=== PATIENT | female | born 1990 | race Caucasian/White ===

== ENCOUNTER 2018-04-15 08:48 | Observation (INO) ==
[2018-04-15] MEDS ORDERED: Chlorhexidine Gluconate 2% 1 Pack (2 Cloths) TOPICAL ONE (09:15)
[2018-04-15] MEDS ORDERED: Sodium Chloride 0.9% 2 ML Flush PRN IV.FLUSH (09:15)
[2018-04-15] MEDS ORDERED: Heparin - SQ 10,000 UNITS/ML Vial SQ SCH (09:15)
[2018-04-15] MEDS ORDERED: Levofloxacin 500 mg Premix Inj 500 MG/100 ML PIGGYBACK IV.SIG SCH (09:15)
[2018-04-15] MEDS ORDERED: Sodium Chlor 0.9% Inj 500 ML IV.CONT ONE (09:15)
[2018-04-15] MEDS ORDERED: Metoprolol Tartrate 25 MG Tablet PO ONE (09:15)
[2018-04-15] MEDS ORDERED: Famotidine PF Inj 20 MG/2 ML Vial ONE (10:43)
[2018-04-15] MEDS ORDERED: Sugammadex Inj 200 MG/2 ML Vial IV.PUSH ONE (10:44)
[2018-04-15] MEDS ORDERED: Lidocaine 1%/Epinephrine 1:100,000 Inj 30 ML Vial ONE (10:58)
[2018-04-15] MEDS ORDERED: LORazepam 0.5 MG Tablet PO PRN (14:45)
[2018-04-15] MEDS ORDERED: HYDROmorphone PF Inj 1 MG/ML Ampul IV.PUSH PRN (14:45)
[2018-04-15] MEDS ORDERED: fentaNYL Citrate Inj 100 MCG/2 ML Ampul ONE (14:56)
[2018-04-15] MEDS ORDERED: *morphine SULFATE 10 MG/ML PERIprocedure ONLY ONE (14:58)
[2018-04-15] MEDS ORDERED: *Promethazine Inj 25 MG/ML Vial PERIprocedural use ONLY ONE (15:13)
[2018-04-15] MEDS: KCL 20 mEq/D5W/NaCl 0.45% Inj 1,000 ML IV.CONT SCH ×2 (16:00→23:50)
[2018-04-15] MEDS ORDERED: KCL 20 mEq/NACL 0.45% Inj 1,000 ML ONE (16:05)
[2018-04-15] MEDS ORDERED: Sodium Chloride 0.9% 2 ML Flush BID IV.FLUSH SCH (21:00)
[2018-04-15] MEDS ORDERED: ETHINYL ESTRADIOL PO SCH (21:00)
[2018-04-15] MEDS ORDERED: Topiramate 100 MG Tablet PO SCH (21:00)
[2018-04-15] MEDS ORDERED: [UNRECOGNIZED DRUG - OTHER] PO SCH (21:00)
[2018-04-15] MEDS: Ketorolac Inj 30 MG/ML (IVP) Vial IV.PUSH SCH (21:34)
[2018-04-15] MEDS: Loratadine/Pseudoephedrine 12HR Tablet PO SCH (22:28)
[2018-04-16 00:10] VITALS: O2SAT 97
[2018-04-16] MEDS: Ketorolac Inj 30 MG/ML (IVP) Vial IV.PUSH SCH ×2 (02:09→07:44)
[2018-04-16 05:57] LABS: Baso % (Auto) 0.3 % (0.0-2.0); Eos % (Auto) 0.3 % (0.0-4.0); Hematocrit 36.6 % (35.0-46.0); Hemoglobin 12.1 gm/dL (11.6-15.3); Lymph # (Auto) 2.1 th/mm3 (1.0-4.8); Lymph % (Auto) 18.1 % (9.0-44.0); Mean Corpuscular HGB Conc 33.1 % (32.0-36.0); Mean Corpuscular Hemoglobin 31.1 pg (27.0-34.0); Mean Platelet Volume 8.7 fL (7.0-11.0); Mono # (Auto) 1.1 th/mm3 (0.0-0.9); Mono % (Auto) 9.1 % (0.0-8.0); Neut # (Auto) 8.4 th/mm3 (1.8-7.7); Neut % (Auto) 72.2 % (16.0-70.0); Platelet Count 167 th/mm3 (150-450); Red Blood Count 3.89 mil/mm3 (4.00-5.30); Red Cell Distribution Width 13.8 % (11.6-17.2); White Blood Count 11.7 th/mm3 (4.0-11.0)
[2018-04-16 06:23] LABS: Anion Gap 6 meq/L (5-15); Blood Urea Nitrogen 8 mg/dL (7-18); Calcium 7.9 mg/dL (8.5-10.1); Carbon Dioxide 22.3 meq/L (21.0-32.0); Chloride 112 meq/L (98-107); Glomerular Filtration Rate Greater Than 89 mL/min (>89); Glucose,Random 119 mg/dL (74-106); Potassium 3.9 meq/L (3.5-5.1); Sodium 140 meq/L (136-145)
--- NOTE | 2018-04-16 07:53 | MD ---
cc: Bhumi Jauregui MD,Hosea Cheng,Abram Carson MD DATE OF DISCHARGE: 04/16/2018 PROCEDURE: On 04/15/2018, robotic-assisted laparoscopic right salpingo-oophorectomy, partial omentectomy, appendectomy, intraperitoneal cytology. DIAGNOSIS: Right ovarian mucinous borderline ovarian tumor. HOSPITAL COURSE: She did well in postop. She remained hemodynamically stable, tolerated oral intake. Bolton catheter out pending voiding. Ins and outs 3800 urine output. Labs this morning show H and H of 12.1 and 36.6. Potassium 3.9, BUN and creatinine 8 and 0.75 PHYSICAL EXAMINATION: VITAL SIGNS: She is afebrile, pulse slow rate between 49 and 62, respirations 16-18, blood pressure 92-109/52-69, O2 saturations greater than 93% while asleep, 97% while awake. GENERAL: Alert and oriented x 3. LUNGS: Clear. CARDIOVASCULAR: Regular rate and rhythm. ABDOMEN: Soft. Incisions clean and dry. GYNECOLOGIC: No bleeding. EXTREMITIES: Nontender. ASSESSMENT: Postoperative day number 1, doing well in the early postoperative period. Findings at the time of surgery and steps taken were discussed and reviewed. Activities and restrictions were again reviewed. Questions were asked and answered. She expressed good understanding. PLAN: I anticipate she will meet criteria for discharge to home today. She is to contact our office to schedule a followup in 2 weeks. She is to resume prior medications. She will have a prescription for Percocet for pain if she needs it, and she can contact our office between now and the time of scheduled followup should she have any questions or problems. MD STEFFANIE Laurent/nan , 07:40 AM , 07:45 AM
[2018-04-16] MEDS: Loratadine/Pseudoephedrine 12HR Tablet PO SCH (09:15)
[2018-04-16 12:12] VITALS: BP 92/49; PULSE 68; RESP 18; TEMP 97.8
--- NOTE | 2018-04-20 18:25 | MP ---
cc: Bhumi Jauregui MD,Abram Umaña MD, MD DATE OF OPERATION: 04/15/2018 PREOPERATIVE DIAGNOSES: 1. Right ovarian mucinous borderline ovarian tumor. 2. Status post right ovarian cystectomy. POSTOPERATIVE DIAGNOSES: 1. Right ovarian mucinous borderline ovarian tumor. 2. Status post right ovarian cystectomy. PROCEDURES: Laparoscopic right salpingo-oophorectomy, partial omentectomy, appendectomy, intraperitoneal washings for cytology. SURGEON: Bhumi Jauregui MD PHYSICAL THERAPY MANAGER: Reyes reference assistant. ANESTHESIA: General endotracheal anesthesia. ESTIMATED BLOOD LOSS: 50 mL HISTORY: This is a 28-year-old female who presented on physical exam and imaging to have predominantly cystic right ovarian mass. Given her young age and desire to preserve fertility, Dr. Hosea Morton took her for a laparoscopic right ovarian resection of the mass with cystectomy. The pathology came back as a mucinous borderline ovarian tumor. His intraop findings were that there was no overt abnormality beyond this ovary. She was counseled extensively with her significant other regarding these findings, and options were considered, and she presents now for surgical management. She is seen again in the preoperative holding area where the findings were again reviewed. Her objectives are to remain as conservative as possible with the plan to remove the right tube and ovary as the right ovary is at greatest risk for persistent and/or recurrent disease. We will assess the anatomy. Given that the most likely site of metastatic disease, if present, would be in the omentum, at least a partial omentectomy may be considered as well as peritoneal cytology. Also, given that it is a mucinous tumor, that raises the possibility of an occult appendiceal mucinous tumor with metastasis to the ovary, and so we will plan to consider removing the appendix. FINDINGS: The findings in the peritoneal cavity were such that there was no overt evidence of metastatic disease. The liver diaphragm edges were smooth. The peritoneal surfaces were smooth. The left tube and ovary grossly appeared normal. The uterus appears normal. The right ovary is healing well from recent resection of the mass. The remaining ovary grossly appears normal with some minimal scar tissue. The appendix had some subtle scar tissue around it with possibly a little bit of fibrous thickening to the tip, but otherwise appears normal. The omentum grossly appears normal. DESCRIPTION OF PROCEDURE: She was taken to the operating room and placed in dorsal lithotomy position. After general endotracheal anesthesia was administered, A timeout was undertaken. She was identified by site recognition and hospital ID bracelet and the proposed procedure was reviewed and confirmed. She was carefully positioned in padded Ethan stirrups. Her arms were padded and secured to the sides. She was further secured to the operating table with egg crate padding and tape in a cross chest and over the shoulder fashion. All sites were noted to be properly aligned with no malalignments or pressure points. She was prepped and draped in sterile fashion and placed in lithotomy position. The cervix was grasped. Uterine cavity sounded. Cervix dilated, and a VCare manipulator was inserted and secured in usual fashion. Bolton catheter placed in the bladder. She was returned to low lithotomy position. Change of sterile gloves was undertaken. We confirmed there was an orogastric tube in the stomach on suction, and we completed draping in anticipation of laparoscopy. Incision was made in the midline supraumbilical laparoscopic incision from her recent surgery. With manual elevation of the abdominal wall and direct laparoscopic visualization, a 5 mm cannula was attempted to be introduced, but there was fair bit of scar tissue within the abdominal wall that precluded straightforward entry at this site. So an incision was made in the left upper abdomen, and with manual elevation of the abdominal wall under direct laparoscopic visualization, a 5 mm cannula was introduced into the peritoneal cavity. An atraumatic entry was confirmed and carbon dioxide gas was insufflated. Now under laparoscopic visualization, the midline incision and scar tissue were dissected sharply, and a 12 mm cannula was now able to be introduced. Under direct visualization, 8 mm cannulas were placed in the right upper quadrant and left lateral quadrant using 2 of the recent previous laparoscopic incisions. She was placed in Trendelenburg position. The anatomy was surveyed, inspected, with findings as described above. Peritoneal washings were obtained for cytology. The small bowel was folded back on its mesenteric root, and 3 Ray-Elizabeth sponges were placed around the root of the small bowel mesentery. The robotic system brought into the operative field and attached in the usual fashion. Monopolar scissors, fenestrated bipolar forceps, and ProGrasp manipulators were placed in arms #1, #2, and #3 respectively, and I took my place at the surgeon's console. Retroperitoneal dissection was initiated lateral and parallel to the right gonadal vessels. The right ureter was identified. The right infundibulopelvic ligament was isolated. The intervening peritoneum was opened. The infundibulopelvic ligament was isolated to the level of the pelvic brim where it was cauterized and transected. Dissection was continued distally, freeing minimal adhesions in the peritoneum until the right uteroovarian ligament was isolated which was cauterized and transected, and the removed right tube and ovary were placed in the cul-de-sac for later retrieval. Graspers were used to help bring the infracolic omentum down toward the pelvis. It was inspected and noted to be grossly normal. A generous portion of the omentum was resected with vascular pedicles isolated, cauterized, and transected with bipolar cautery. Nonvascular attachments of tissue were with sharp dissection until a large portion of the infracolic omentum had been removed. This tissue this also was placed in the cul-de-sac for later retrieval. The dissection site was hemostatic. The appendix was isolated, held on gentle traction as the periappendiceal tissue and appendiceal artery was isolated using a [place] bipolar forceps, was cauterized focally and transected, and then sharp dissection was used to dissect down to the base of the appendix. Instruments 1 and 3 exchanged for needle drivers as short segments of 0 silk suture were brought in through the laparoscopic field, where the base of the appendix was now tied securely with 0 silk sutures, and then a second tie a few millimeters distal to that was placed around the base of the appendix. A third tie was placed approximately 1 cm away after the appendix base, after the appeniceal base was compressed with the needle belly dump driver to allow secure tying on the distal segment. The appendix was now removed, cutting between the sutures using sharp dissection and focal point cautery. The appendix was placed in the pericolic gutter on Ray-Elizabeth sponges for later retrieval. The instruments were exchanged. All sites were inspected. The areas were irrigated. All sites were hemostatic. It was felt that all reasonable surgical objectives had been completed. Therefore, the robotic instruments were removed. The robotic system was disengaged from the operative field. I reentered the bedside under sterile condition. A 12 mm EndoCatch bag was introduced, and the right tube and ovary, the omentum, and the appendix were all placed in the EndoCatch bag and brought out through the abdominal wall. Each specimen was removed and for permanent histopathologic analysis. Next, each of the 3 Ray-Elizabeth sponges that were placed in the peritoneal cavity were grasped and removed. Each were inspected and noted to be removed in their entirety. Visual inspection confirmed all sites hemostatic, and there were no remaining foreign objects in the peritoneal cavity sites, and the preliminary counts were correct. The 12 mm fascial defect was closed with interrupted 0 Vicryl sutures. Using a fascia needle passer device, the sutures were tied securely which rendered the fascia completely airtight and hemostatic. Remaining cannulas were withdrawn. Carbon dioxide gas was removed from the peritoneal cavity; 3-0 Vicryl subcutaneous, 3-0 Vicryl subcuticular, and Steri-Strips were used to close these incisions. She was returned to dorsal lithotomy position. Pelvic exam allowed removal of the VCare manipulator. The tenaculum sites and endocervix were rendered hemostatic with silver nitrate. There was good hemostasis. There were no remaining foreign objects in the vagina. Final counts were correct. She was returned to dorsal supine position and was pending reversal of anesthesia when I left the operating room to precede her to the postanesthesia care unit. MD STEFFANIE Laurent/patel , 05:35 PM , 05:50 PM AIDEN
== END 2018-04-16 12:37 | disposition home or self-care (01) ==
LOC: HSDC 08:48 → HSDI 08:48 → H1EA 16:47
PROVIDERS: ADMIT Obstetrics & Gynecology Gynecologic Oncology; ATTEND Obstetrics & Gynecology Gynecologic Oncology

== ENCOUNTER 2018-04-20 11:13 | Observation (INO) ==
[2018-04-20] MEDS ORDERED: Morphine Inj 4 MG/ML Vial IV.PUSH ONE ×2 (11:41→17:19)
--- NOTE | 2018-04-20 11:46 | ED ---
HPI General Chief complaint: Abdominal Pain Stated complaint: Right side complaint Time Seen by Provider: 04/20/18 11:31 History of Present Illness HPI narrative: This is a 28-year-old female with history of PCO S who presents for evaluation of postoperative abdominal pain. The patient underwent robotic assisted laparoscopic right salpingo-oophorectomy, partial omentectomy, appendectomy, intraperitoneal cytology on April 15, [address] Jauregui. She reports that she has had postoperative abdominal pain since then but it has been worsening. She called the nursing line for his office and was referred to the emergency room. Pain is primarily in the right mid abdomen region, aching, constant, partially relieved with use of Percocet and ibuprofen. She reports some nausea and dizziness occasionally as well. She reports that she has been having bowel movements. She has had no vomiting, no fevers, no dysuria or flank pain. She has no other complaints at this time. Related Data Home Medications Medication Instructions Recorded Confirmed biotin 1 tab PO HS 01/11/18 04/20/18 ethynodiol diac-eth estradiol 1 tab PO HS 01/11/18 04/20/18 [Kelnor 1-50] fexofenadine-pseudoephedrine 1 tab PO HS 01/11/18 04/20/18 [Tere-D 24 Hour] metformin 2,000 mg PO HS 01/11/18 04/20/18 topiramate 100 mg PO BID 01/11/18 04/15/18 fluticasone [Allergy Relief 1 spray INTRANASAL DAILY 04/08/18 04/20/18 (fluticasone)] Previous Rx's Medication Instructions Recorded oxycodone-acetaminophen 1 tab PO Q4H PRN #30 tab 04/16/18 Allergies Allergy/AdvReac Type Severity Reaction Status Date / Time Penicillins Allergy Severe Rash Verified 04/15/18 09:22 Review of Systems ROS: all other systems reviewed are negative PMFSH Social History Social History Substance History: No History of Abuse Second Hand Smoke Exposure: No Smoking Status: Never smoker How Often Do You Have a Drink Containing Alcohol: Monthly or less Recent Travel in [facility] within the Last 8 Weeks: No Recent Out of Country Travel within the Last 8 Weeks: No Exam Narrative Exam Narrative: GENERAL: Well-developed well-nourished female who is tearful during abdominal examination. SKIN: Warm and dry. Examination of the abdomen reveals laparoscopic incision sites which are healing well, Steri-Strips are in place. HEAD: Atraumatic. Normocephalic. EYES: Pupils equal and round. No scleral icterus. No injection or drainage. ENT: No nasal bleeding or discharge. Mucous membranes pink and moist. NECK: Trachea midline. No JVD. CARDIOVASCULAR: Regular rate and rhythm. No murmur appreciated. RESPIRATORY: No accessory muscle use. Clear to auscultation. Breath sounds equal bilaterally. GASTROINTESTINAL: Abdomen soft, there is tenderness to palpation in the right mid abdominal region, there is no guarding. The abdomen is not distended. MUSCULOSKELETAL: No obvious deformities. No clubbing. No cyanosis. No edema. NEUROLOGICAL: Awake and alert. No obvious cranial nerve deficits. Motor grossly within normal limits. Normal speech. Course Initial Documented Vital Signs Temperature 98.3 F 04/20/18 11:18 Pulse Rate 96 H 04/20/18 11:18 Respiratory Rate 16 04/20/18 11:18 Blood Pressure 129/65 04/20/18 11:18 Pulse Oximetry 99 04/20/18 11:18 Last Documented Vital Signs Temperature 98.3 F 04/20/18 11:18 Pulse Rate 76 04/20/18 16:00 Respiratory Rate 16 04/20/18 17:54 Blood Pressure 132/83 04/20/18 16:00 Pulse Oximetry 98 04/20/18 16:00 Medical Decision Making NILE Attestation NILE supervised visit: Yes Attestation: I, Dr. Valdez, have reviewed the advance practice practitioner's documentation and am in agreement, met with the patient face to face, made the diagnosis, and the medical decision making was done by me. *My assessment and Findings: Patient seen and examined by me in addition to Rustam Villatoro. 28-year-old female is postop day #4 from right salpingo- oophorectomy and appendectomy. Patient is fairly tender on the right upper and right lower quadrants of the abdomen and pushes my hand away multiple times. She did allow up with percussion and rebound testing of left side, there may be a small amount of rebound but there is no percussive tenderness. The patient's abdomen was soft on the left side. Again she did not allow significant palpation on the right side. CAT scan of the abdomen was reviewed and unfortunately there still is intra-abdominal air of unknown determined origin. Likely this is from the insufflation of the laparoscopic procedure however the radiologist cannot give any assurances that there is an a perforated viscus and the patient did have surgery on her appendix. I did discuss the patient with Dr. Jauregui, he is discussed with Dr. Moffett who is on- call for general surgery is Dr. Jauregui is not control clerk today. The 2 surgeons requested patient have a CT scan with p.o. contrast and one has been ordered. They both recommended admission to hospitalist service overnight for further monitoring. MDM Narrative Medical decision making narrative: An IV was established, lab work was obtained , urinalysis was obtained, CT abdomen pelvis ordered. The patient was given morphine and Zofran. Lab work is been reviewed, notable for WBC count of 13.8, urinalysis reveals large leukocytes, small blood, cultures pending. CT abdomen pelvis reveals evidence of a moderate amount of air, differential diagnosis includes residual free intraperitoneal air related to recent intraoperative procedure versus perforated viscus. There are several loops of minimally dilated small bowel suggesting postoperative ileus. There is subcutaneous air noted throughout the abdominal and pelvic wall consistent with recent intraoperative surgery. On reexamination she feels somewhat improved, her abdomen is soft however she is significantly tender still in the right side of her abdomen particularly, cries with palpation. Therefore will discuss with her surgeon. She was given Rocephin and Flagyl. 1600: I discussed with Dr. Perez who is on-call for Dr. Jauregui who recommends consulting the on-call general surgeon as she is not a surgeon and will not be able to help with this particular issue. Dr. Valdez was able to discuss the case with Dr. Jauregui who is requesting a CT of the abdomen and pelvis with oral contrast and without IV contrast and admission overnight to the medicine team, Dr. Rivers will consult. The patient was given additional analgesics. She will be admitted. Medical Screen Exam Complete: Yes Emergency Medical Condition: Yes Differential Diagnosis Differential Diagnosis: Postoperative abdominal pain, seroma, abscess, colitis, obstruction, hematoma Lab Data Result diagrams: 04/20/18 12:00 04/20/18 12:00 Lab Results 04/20/18 04/20/18 04/20/18 Range/Units 12:00 12:00 12:00 WBC 13.8 H (4.0-11.0) th/mm3 RBC 4.52 (4.00-5.30) mil/mm3 Hgb 14.4 (11.6-15.3) gm/dL Hct 41.7 (35.0-46.0) % MCV 92.2 (80.0-100.0) fL MCH 31.8 (27.0-34.0) pg MCHC 34.5 (32.0-36.0) % RDW 13.8 (11.6-17.2) % Plt Count 199 (150-450) th/mm3 MPV 9.0 (7.0-11.0) fL Prelim Diff (Auto) Slide review pending Neut % (Auto) 68.0 (16.0-70.0) % Lymph % (Auto) 20.3 (9.0-44.0) % Ness % (Auto) 5.1 (0.0-8.0) % Eos % (Auto) 6.2 H (0.0-4.0) % Baso % (Auto) 0.4 (0.0-2.0) % Neut # (Auto) 9.4 H (1.8-7.7) th/mm3 Lymph # (Auto) 2.8 (1.0-4.8) th/mm3 Ness # (Auto) 0.7 (0.0-0.9) th/mm3 Eos # (Auto) 0.9 H (0.0-0.4) th/mm3 Baso # (Auto) 0.0 (0.0-0.2) th/mm3 WBC Differential . Diff Scan Auto diff confirmed Differential Comment . Platelet Estimate Normal (Normal) Platelet Morphology Clumped H (Normal) Sodium 138 (136-145) meq/L Potassium 4.6 (3.5-5.1) meq/L Chloride 106 (98-107) meq/L Carbon Dioxide 25.2 (21.0-32.0) meq/L Anion Gap 7 (5-15) meq/L BUN 14 (7-18) mg/dL Creatinine 0.95 (0.50-1.00) mg/dL Estimated GFR 70 L (>89) mL/min Random Glucose 88 (74-106) mg/dL Calcium 8.9 (8.5-10.1) mg/dL Magnesium 2.0 (1.5-2.5) mg/dL Total Bilirubin 0.6 (0.2-1.0) mg/dL AST 48 H (15-37) U/L ALT 35 (10-53) U/L Alkaline Phosphatase 73 (45-117) U/L Total Protein 7.6 (6.4-8.2) g/dL Albumin 3.4 (3.4-5.0) g/dL Lipase 69 L (73-393) U/L Urine Color Yellow (Yellw/Straw) Urine Clarity Hazy H (Clear) Urine pH 6.0 (5.0-8.5) Ur Specific [place] 1.010 (1.002-1.035) Urine Protein Negative (Neg-Trace) mg/dL Urine Glucose (UA) Negative (Negative) mg/dL Urine Ketones Negative (Negative) mg/dL Urine Occult Blood Small H (Negative) Urine Nitrate Negative (Negative) Urine Bilirubin Negative (Negative) Urine Urobilinogen Less than 2 (Less than 2) mg/dL Ur Leukocyte Esterase Large H (Negative) Urine RBC 2 (0-3) /hpf Urine WBC 21 H (0-5) /hpf Ur Squamous Epith Cells 9 (0-5) /hpf Urine Bacteria Rare H (None) /hpf Urine Mucus Few H (Occasional) /lpf Micro UA Comment Culture indicated Ur Microscopic Review Not Reportable Urine Culture Comments Culture indicated Imaging Data Radiologist's impression: Chest X-Ray 04/20/18 00:00 CONCLUSION: 1. No acute cardiopulmonary disease. Abdomen/Pelvis CT 04/20/18 11:41 CONCLUSION: 1. Evidence of a moderate amount of free intraperitoneal air. Differential diagnosis includes residual free intraperitoneal air related to recent intraoperative procedure versus perforated viscus. Clinical correlation is recommended to rule out acute abdomen. There are several loops of minimally dilated small bowel suggesting postoperative ileus. 2. Subcutaneous air is noted throughout the abdominal and pelvic wall bilaterally consistent with recent intraoperative surgery. 3. Distended urinary bladder. 4. Tiny stable low-density lesion within the right lobe of liver measuring 7 mm which remains too small for accurate density measurement. Discharge Plan Discharge Disposition Patient Disposition: ED Admit(ED Internal Use Only) Discharge Condition Condition: Stable Discharge Order Discharge Orders: ED Use Only Admit Order (Routine); Ordered 04/20/18 Ordered By: Rustam Irving Discharge Details Diagnosis: Acute postoperative abdominal pain, UTI (urinary tract infection) Physicians Team ED Provider: Alexis Valdez ED Midlevel Provider: Rustam Villatoro Primary Care Provider: Abram Cheng Rxs /Orders / Referrals /Forms Prescriptions: No Action fluticasone [Allergy Relief (fluticasone)] 50 mcg/actuation [place],Suspension 1 spray INTRANASAL DAILY RF: 0 oxycodone-acetaminophen 5-325 mg Tablet 1 tab PO Q4H PRN (Reason: Pain ) Qty: 30 RF: 0 ethynodiol diac-eth estradiol [Kelnor 1-50] 1-50 mg-mcg Tablet 1 tab PO HS RF: 0 topiramate 100 mg Tablet 100 mg PO BID RF: 0 fexofenadine-pseudoephedrine [Tere-D 24 Hour] 180-240 mg Tablet Extended Release 24 Hr 1 tab PO HS RF: 0 metformin 1,000 mg Tablet,Er Marissa.Retention 24 Hr 2,000 mg PO HS RF: 0 biotin 5 mg Tablet 1 tab PO HS RF: 0 Status ED Status: With Doctor
[2018-04-20 12:23] LABS: Baso % (Auto) 0.4 % (0.0-2.0); Eos # (Auto) 0.9 th/mm3 (0.0-0.4); Eos % (Auto) 6.2 % (0.0-4.0); Hematocrit 41.7 % (35.0-46.0); Hemoglobin 14.4 gm/dL (11.6-15.3); Lymph # (Auto) 2.8 th/mm3 (1.0-4.8); Lymph % (Auto) 20.3 % (9.0-44.0); Mean Corpuscular HGB Conc 34.5 % (32.0-36.0); Mean Corpuscular Hemoglobin 31.8 pg (27.0-34.0); Mean Corpuscular Volume 92.2 fL (80.0-100.0); Mono # (Auto) 0.7 th/mm3 (0.0-0.9); Mono % (Auto) 5.1 % (0.0-8.0); Neut # (Auto) 9.4 th/mm3 (1.8-7.7); Platelet Count 199 th/mm3 (150-450); Red Blood Count 4.52 mil/mm3 (4.00-5.30); Red Cell Distribution Width 13.8 % (11.6-17.2); White Blood Count 13.8 th/mm3 (4.0-11.0)
[2018-04-20 12:32] LABS: Bacteria,Urine Rare /hpf; Bilirubin,Urine Negative (Negative); Clarity,Urine Hazy (Clear); Color,Urine Yellow (Yellw/Straw); Glucose,Urine (UA) Negative (Negative); Leukocyte Esterase,Urine Large (Negative); Mucus,Urine Few /lpf (Occasional); Nitrite,Urine Negative (Negative); Squamous Epithelial Cell,Urine 9 /hpf (0-5)
[2018-04-20 12:40] LABS: Alanine Aminotransferase 35 U/L (10-53)
[2018-04-20 12:42] LABS: Alkaline Phosphatase 73 U/L (45-117); Total Protein 7.6 g/dL (6.4-8.2)
[2018-04-20 12:45] LABS: Albumin 3.4 g/dL (3.4-5.0); Anion Gap 7 meq/L (5-15); Blood Urea Nitrogen 14 mg/dL (7-18); Calcium 8.9 mg/dL (8.5-10.1); Carbon Dioxide 25.2 meq/L (21.0-32.0); Chloride 106 meq/L (98-107); Glomerular Filtration Rate 70 mL/min (>89); Glucose,Random 88 mg/dL (74-106); Lipase 69 U/L (73-393); Sodium 138 meq/L (136-145)
[2018-04-20 12:46] LABS: Aspartate Aminotransferase 48 U/L (15-37); Potassium 4.6 meq/L (3.5-5.1)
[2018-04-20 12:50] LABS: Platelet Estimate Normal (Normal); Platelet Morphology Clumped (Normal)
--- NOTE | 2018-04-20 15:18 | CT ---
EXAM DATE: 04/20/2018 3:10 PM EST AGE/SEX: 28 years / Female INDICATIONS: Right lower quadrant pain, 5 days post op ovary,fallopian tube, omentum, and appendix r emoval CLINICAL DATA: This is the patient's initial encounter. Patient reports that signs and symptoms have been present for 4 - 6 days and indicates a pain score of 8/10. MEDICAL/SURGICAL HISTORY: None. Appendectomy. Right oopheractomy, ORAL CONTRAST: No oral contrast ingested. RADIATION DOSE: 11.89 CTDI (mGy) COMPARISON: POI, CT ABDOMEN AND PELVIS W AND W/O CONTRAST, 12/26/2017. POI, US TRANSVAGINAL, 11/30. . TECHNIQUE: Multiple contiguous axial images were obtained through the abdomen and pelvis following b olus infusion of 97 ml Omnipaque 350 (iohexol) nonionic water-soluble contrast as a single exam dos e. No oral contrast ingested. Using automated exposure control and adjustment of the mA and/or kV ac cording to patient size, radiation dose was kept as low as reasonably achievable to obtain optimal di agnostic quality images. DICOM format image data is available electronically for review and comparis on. FINDINGS: Lower Lungs: The visualized lower lungs are clear. Liver: There is a tiny stable low-density lesion within the right lobe of liver measuring 7 mm which remains too small for accurate density measurement. There is no dilation of the biliary tree. Spleen: Homogeneous density without enlargement. Pancreas: Unremarkable without mass or calcification. Kidneys: Normal in size and shape. No evidence of mass or hydronephrosis. Adrenal Glands: Unremarkable. Aorta: The aorta and proximal iliac vessels are grossly unremarkable without aneurysmal dilation. Bowel/Mesentery: There is evidence of a moderate amount of free intraperitoneal air. Differential di agnosis includes residual free intraperitoneal air related to recent intraoperative procedure versus perforated viscus. Clinical correlation is recommended to rule out acute abdomen. There are several l oops of minimally dilated small bowel suggesting postoperative ileus. Abdominal Wall: Subcutaneous air is noted throughout the abdominal and pelvic wall bilaterally consi stent with recent intraoperative surgery. Retroperitoneum: No evidence of adenopathy in the retrocrural, para-aortic, or deep pelvic regions. Bladder: The urinary bladder is distended. Reproductive Organs: No abnormal masses or calcifications seen. Inguinal: The inguinal region is unremarkable without evidence of adenopathy. Bony Structures: Unremarkable. CONCLUSION: 1. Evidence of a moderate amount of free intraperitoneal air. Differential diagnosis includes residu al free intraperitoneal air related to recent intraoperative procedure versus perforated viscus. Clin ical correlation is recommended to rule out acute abdomen. There are several loops of minimally dilat ed small bowel suggesting postoperative ileus. 2. Subcutaneous air is noted throughout the abdominal and pelvic wall bilaterally consistent with re cent intraoperative surgery. 3. Distended urinary bladder. 4. Tiny stable low-density lesion within the right lobe of liver measuring 7 mm which remains too sm all for accurate density measurement. Electronically signed by: Alexis Salmon MD Board Certified Radiologist 04/20/2018 3:17 PM EST
[2018-04-20] MEDS ORDERED: Diatrizoate Meglum/Diatrizoate Sod Liq 9 ML UDC ONE (17:18)
--- NOTE | 2018-04-20 17:37 | P.HPIM ---
History of Present Illness Primary Care Physician: Abram Cheng MD Chief Complaint: abd pain History of Present Illness: This a 28-year-old female patient with past medical history which includes allergic rhinitis, migraines, PCOS. Patient is status post robotic-assisted laparoscopic right salpingo-oophorectomy, partial omentectomy, appendectomy, intraperitoneal cytology on 04/15/[address] Jauregui. Patient presents to the ER for evaluation of postoperative abdominal pain. She reports that she has had postoperative abdominal pain since the surgery but it has been worsening. She called the nursing line for his office and was referred to the emergency room. Pain is primarily in the right mid abdomen region, aching, constant, partially relieved with use of Percocet and ibuprofen. She reports some nausea and dizziness occasionally as well. She reports that she has been having bowel movements. She has had no vomiting, no fevers, no dysuria or flank pain. She has no other complaints at this time. PMH: allergic rhinitis, migraines, PCOS PSxH: robotic-assisted laparoscopic right salpingo-oophorectomy, partial omentectomy, appendectomy, intraperitoneal cytology on 04/15/[address] Jauregui 12/2017 laparoscopy with right ovarian cystectomy Social history: occasional ETOH use, denies tobacco use, denies illicit drug use FMH: Father has HTN Mother has OA Medications and Allergies Allergies Allergy/AdvReac Type Severity Reaction Status Date / Time Penicillins Allergy Severe Rash Verified 04/15/18 09:22 Home Medications Medication Instructions Recorded Confirmed Type biotin 1 tab PO HS 01/11/18 04/20/18 History ethynodiol diac-eth estradiol 1 tab PO HS 01/11/18 04/20/18 History [Kelnor 1-50] fexofenadine-pseudoephedrine 1 tab PO HS 01/11/18 04/20/18 History [Tere-D 24 Hour] metformin 2,000 mg PO HS 01/11/18 04/20/18 History topiramate 100 mg PO BID 01/11/18 04/15/18 History fluticasone [Allergy Relief 1 spray INTRANASAL DAILY 04/08/18 04/20/18 History (fluticasone)] Active Medications: Active Medications Sodium Chloride (Ns Flush) 2 ml IV.FLUSH PRN PRN PRN Reason: FLUSH AFTER USING IV ACCESS Last Admin: 04/20/18 17:26 Dose: 2 ml Physical Exam Vital signs: Last Vital Signs Temp 98.3 F 04/20/18 11:18 Pulse 76 04/20/18 16:00 Resp 20 04/20/18 16:00 BP 132/83 04/20/18 16:00 Pulse Ox 98 04/20/18 16:00 Narrative: GENERAL: This is a well-nourished, well-developed patient, in no apparent distress. CARDIOVASCULAR: Regular rate and rhythm without murmurs, gallops, or rubs. RESPIRATORY: Clear to auscultation. Breath sounds equal bilaterally. No wheezes , rales, or rhonchi. GASTROINTESTINAL: Abdomen soft, generalized tender worse on the right, nondistended. Normal active bowel sounds MUSCULOSKELETAL: Extremities without clubbing, cyanosis, or edema. NEURO: Alert & Oriented x4 to person, place, time, situation. Moves all ext x4 Results Labs CBC & Chem 7: 04/20/18 12:00 04/21/18 07:07 Caprini VTE Risk Assessment Caprini VTE Risk Assessment: Moderate/High Risk (score >= 2) Caprini Risk Assessment Model: Point Value = 1 Point Value = 2 Point Value = 3 Point Value = 5 Age 41-60 Minor surgery BMI > 25 kg/m2 Swollen legs Varicose veins or History of unexplained or recurrent spontaneous Oral contraceptives or hormone replacement Sepsis (< 1 month) Serious lung disease, including pneumonia (< 1 month) Abnormal pulmonary function Acute myocardial infarction Congestive heart failure (< 1 month) History of inflammatory bowel disease Medical patient at bed rest Age 61-74 Arthroscopic surgery Major open surgery (> 45 min) Laparoscopic surgery (> 45 min) Malignancy Confined to bed (> 72 hours) Immobilizing plaster cast Central venous access Age >= 75 History of VTE Family history of VTE Factor V Leiden Prothrombin [id number] Lupus anticoagulant Anticardiolipin antibodies Elevated serum homocysteine Heparin-induced thrombocytopenia Other congenital or acquired thrombophilia Stroke (< 1 month) Elective arthroplasty Hip, pelvis, or leg fracture Acute spinal cord injury (< 1 month) Prophylaxis Regimen: Total Risk Factor Score Risk Level Prophylaxis Regimen 0-1 Low Early ambulation 2 Moderate Order ONE of the following: *Sequential Compression Device (SCD) *Heparin 5000 units SQ BID 3-4 Higher Order ONE of the following medications: *Heparin 5000 units SQ TID *Enoxaparin/Lovenox 40 mg SQ daily (WT < 150 kg, CrCl > 30 mL/min) *Enoxaparin/Lovenox 30 mg SQ daily (WT < 150 kg, CrCl > 10-29 mL/min) *Enoxaparin/Lovenox 30 mg SQ BID (WT < 150 kg, CrCl > 30 mL/min) AND/OR *Sequential Compression Device (SCD) 5 or more Highest Order ONE of the following medications: *Heparin 5000 units SQ TID (Preferred with Epidurals) *Enoxaparin/Lovenox 40 mg SQ daily (WT < 150 kg, CrCl > 30 mL/min) *Enoxaparin/Lovenox 30 mg SQ daily (WT < 150 kg, CrCl > 10-29 mL/min) *Enoxaparin/Lovenox 30 mg SQ BID (WT < 150 kg, CrCl > 30 mL/min) AND *Sequential Compression Device (SCD) Assessment and Plan Plan This a 28-year-old female patient with past medical history which includes allergic rhinitis, migraines, PCOS. Patient is status post robotic-assisted laparoscopic right salpingo-oophorectomy, partial omentectomy, appendectomy, intraperitoneal cytology on 04/15/[address] Jauregui. Patient presents to the ER for evaluation of postoperative abdominal pain. She reports that she has had postoperative abdominal pain since the surgery but it has been worsening. She called the nursing line for his office and was referred to the emergency room. Pain is primarily in the right mid abdomen region, aching, constant, partially relieved with use of Percocet and ibuprofen. She reports some nausea and dizziness occasionally as well. She reports that she has been having bowel movements. She has had no vomiting, no fevers, no dysuria or flank pain. She has no other complaints at this time. Right ovarian mucinous borderline ovarian tumor Patient is status post robotic-assisted laparoscopic right salpingo-oophorectomy , partial omentectomy, appendectomy, intraperitoneal cytology on 04/15/[address] Jauregui. Patient presents to the ER for evaluation of postoperative abdominal pain. Abdomen/Pelvis CT 04/20/18 1. Evidence of a moderate amount of free intraperitoneal air. Differential diagnosis includes residual free intraperitoneal air related to recent intraoperative procedure versus perforated viscus. Clinical correlation is recommended to rule out acute abdomen. There are several loops of minimally dilated small bowel suggesting postoperative ileus. 2. Subcutaneous air is noted throughout the abdominal and pelvic wall bilaterally consistent with recent intraoperative surgery. 3. Distended urinary bladder. 4. Tiny stable low-density lesion within the right lobe of liver measuring 7 mm which remains too small for accurate density measurement. Dr. Guerrier updated Dr. Jauregui Consult general surgery Possible UTI WBC 13.8 Urinalysis reviewed small amount of occult blood large amount of leukocyte esterase rare bacteria and rare mucus present Urine culture is pending emergency department gave Rocephin 1 gram IV Continue Rocephin 1 gram IV daily Migraines Continue patient's home Topiramate 100mg 1 tablet BID PCOS Continue patient's home metformin 1000mg PO BID DVT prophylaxis with SCDs Attending Attestation The exam, history, and the medical decision-making described in the above note were completed with the assistance of the mid-level provider. I reviewed and agree with the findings presented. I attest that I had a [id number] encounter with the patient on the same day, and personally performed and documented my assessment and findings in the medical record. Patient examined. Assessment and plan formulated with Delia Gillette PA-C. I agree with the above. Case d/w Dr. Jauregui by phone. Case d/w Dr. Rivers and pt examined together with Dr. Rivers. clinically perforation seems unlikely. Will obtain CT A/P with contrast for further evaluation. narcotics prn pain
[2018-04-20] MEDS ORDERED: Acetaminophen 325 MG Tablet PO PRN (17:41)
--- NOTE | 2018-04-20 18:05 | XR ---
EXAM DATE: 04/20/2018 6:02 PM EST AGE/SEX: 28 years / Female INDICATIONS: Shortness of breath off and on. Right lower quadrant pain, 5 days post op ovary,fallopi an tube, omentum, and appendix removal. CLINICAL DATA: This is the patient's initial encounter. Patient reports that signs and symptoms have been present for 4 - 6 days and indicates a pain score of 7/10. MEDICAL/SURGICAL HISTORY: None. Appendectomy. Right oophorectomy COMPARISON: No prior exams available for comparison. FINDINGS: A single AP view of the chest demonstrates the lungs to be symmetrically aerated without evidence of mass, infiltrate or effusion. The cardiomediastinal contours are unremarkable. Osseous structures a re intact. CONCLUSION: 1. No acute cardiopulmonary disease. Electronically signed by: Thom Barnett MD Board Certified Radiologist 04/20/2018 6:04 PM ADRIANA Parra
--- NOTE | 2018-04-20 19:24 | CT ---
EXAM DATE: 04/20/2018 7:15 PM EST AGE/SEX: 28 years / Female INDICATIONS: Abnormal prior CT. CLINICAL DATA: This is the patient's initial encounter. Patient reports that signs and symptoms have been present for 1 day and indicates a pain score of 7/10. MEDICAL/SURGICAL HISTORY: None. . ovarian cystectomy RADIATION DOSE: 7.6 CTDI (mGy) COMPARISON: C, CT ABDOMEN & PELVIS W CONTRAST, 04/20/2018. POI, CT ABDOMEN AND PELVIS W AND W /O CONTRAST, 12/26/2017. . TECHNIQUE: Multiple contiguous axial images were obtained through the abdomen. Images were obtained using multiple row detector helical technique. Using automated exposure control and adjustment of the mA and/or kV according to patient size, radiation dose was kept as low as reasonably achievable to o btain optimal diagnostic quality images. DICOM format image data is available electronically for rev iew and comparison. FINDINGS: Again, there is evidence of free intraperitoneal air which is stable in volume compared to the earlie r scan. Differential diagnosis remains the same including air related to recent intraoperative proced ure versus perforated viscus if clinical scenario suggests this diagnosis. There is no evidence of ex travasation of oral contrast. Subcutaneous air is again noted within the abdominal and pelvic wall an d is stable. There is no significant change in the appearance of the intra-abdominal viscera compared to previous examination. No bowel obstruction is noted. The urinary bladder is distended with contra st but demonstrates no wall thickening. CONCLUSION: 1. Persistent free intraperitoneal air which is stable in volume compared to the earlier scan. Diffe rential diagnosis remains the same including air related to recent intraoperative procedure versus pe rforated viscus if clinical scenario suggests this diagnosis. 2. There is no evidence of extravasation of oral contrast. 3. Stable subcutaneous air within the abdominal and pelvic wall. Electronically signed by: Alexis Salmon MD Board Certified Radiologist 04/20/2018 7:22 PM EST
--- NOTE | 2018-04-20 19:44 | MB ---
cc: Krupa Rivers MD DATE: 04/20/2018 CONSULTING PHYSICIAN: Krupa Rivers MD, Surgery. REASON FOR CONSULTATION: Right lower quadrant pain, status post salpingo-oophorectomy, appendectomy, and omentectomy. HISTORY OF PRESENT ILLNESS: This 28-year-old female, underwent on 04/15/2018 a laparoscopic oophorectomy, appendectomy, and a partial omentectomy by Dr. Jauregui. The patient did well postoperatively, continued to have some abdominal pain, and now comes to the emergency room with worsening pain in the right lower quadrant. The patient has aching, however, relieved partially with pain medication. She has had 4 bowel movements and taking p.o., does not have nausea, does not have both vomiting. No fever. No burning urination. PAST SURGICAL HISTORY: Other than this operation, in December of this year, the patient had laparoscopy with right ovarian cyst removal. SOCIAL HISTORY: The patient drinks occasionally, does not smoke. 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 PHYSICAL EXAMINATION: GENERAL: A pleasant 28-year-old lady. HEENT: Normocephalic. No trauma to the head. Pupils equal, reactive. Extraocular muscles intact. NECK: Bilateral carotid pulses. No masses. CHEST: Bilateral breath sounds. HEART: Regular rhythm. The patient is normopneic. No tachypnea or tachycardia. HEMODYNAMIC: She is completely stable. ABDOMEN: Soft. Hypoactive bowel sounds. Incisions from ports are nice and clean and dry. The patient is indeed tender in the right bassem-abdomen, mainly in the right lower quadrant where there is some voluntary guarding and rebound, but no masses are noted. The patient has referred tenderness from left to right and some tenderness in the right flank. PELVIS: Stable. EXTREMITIES: Within normal limits. BACK: Normal. IMPRESSION: I reviewed laboratory and diagnostic procedures. This lady had 4 days ago fairly extensive procedure on top of previous laparoscopy which required some finesse. The amount of air in the abdomen is consistent with postoperative changes and some retained air. It does not look like this is a leaking organ. Differential diagnoses clearly includes slipped tie off the appendiceal stump or possible incidental small intestinal perforation. The first possibility is distinct, happens occasionally, and it is self-limiting. The appendiceal stump will seal off on its own. There will be no issue there. Small bowel perforation on the other hand, if undiagnosed, would have to be addressed quickly. At this point, the patient does not appear toxic, does not appear critically ill. Tenderness, guarding, and rebound are mainly voluntary, but abdomen is generally benign. If she had 4 days of leakage from the small bowel, she would have a large amount of fluid in the pelvis, would be much sicker at this point which the patient is not. White count is slightly elevated with minimal left shift. All this indicates postoperative changes and perhaps simply pain from the surgery. The patient also has some retained stool in the right colon, which does not help the picture. At this point, the best way to go about it is to have the patient undergo oral contrast CT, and we will see what that looks like. Should the patient have some indication of perforation, we will attend that immediately, but I do not expect this to happen. I have discussed with Dr. Jauregui, and I am covering for him for any surgical emergencies that might arise. Thank you very much for referral. I have discussed this also with Dr. Guerrier with admitting the patient. MD ADRIEN Alba/patel/ev , 06:48 PM , 06:59 PM MTDD
[2018-04-20] MEDS: Senna/Docusate Sodium 8.6/50 MG Tablet PO SCH (21:57)
[2018-04-20] MEDS: Sod Chloride 0.9% Inj 1,000 ML IV.CONT SCH (21:58)
[2018-04-20] MEDS: HYDROmorphone PF Inj 0.5 MG/0.5 ML Syringe IV.PUSH PRN (21:59)
--- NOTE | 2018-04-20 22:36 | MB ---
cc: Bhumi Jauregui MD, Edward B DO Jazarevic, Slobodan MD DATE: 04/20/2018 REQUESTING CONSULT: Dr. Kermit Valdez REASON FOR CONSULTATION: Recent postoperative patient. REASON FOR EVALUATION AT ADMISSION: Abdominal pain. Intraperitoneal and subcutaneous free air. Elevated white count. HISTORY: This is a 28-year-old female who is postoperative day #5 status post robotic-assisted laparoscopic right salpingo-oophorectomy, partial omentectomy and appendectomy. This surgery was done because of recent right ovarian cystectomy showed a mucinous borderline ovarian tumor. After she recovered from her initial surgery, she was counseled and elected to move forward with the aforementioned surgery. She did well in the early postoperative period and was discharged to home on postoperative day #1. She reports that ever since the surgery, she has had right-sided pain that has persisted. She reports the pain being relatively constant and can limit her movement and certain movements that involve her abdominal wall increase the discomfort. She was concerned as her first laparoscopic surgery was not associated with this type discomfort and whereas the pain has not necessarily gotten significantly worse, she was concerned because it had not improved. Apparently, she had contacted our office requesting additional pain medication for coverage during the forthcoming holiday and in discussion with our office nurse recommendations were made to be evaluated in the emergency room because of her symptomatology. She reports that she went the first 2 days after surgery with no flatus and then started moving gas through with very small amount of liquid stool associated with passage of flatus, but no regular bowel movements since surgery. She has had no nausea and no vomiting. She has tolerated oral solids and liquids without adverse effect. She is voiding without difficulty. Upon initial evaluation in the emergency room, objective findings of note are that of an elevated white count of 13.8, H and H of 14.4 and 41.7, platelets 199. Electrolytes show preserved renal function, BUN and creatinine 14 and 0.95, potassium 4.6. CT scan shows moderate amount of free air in the peritoneal cavity as well as the subcutaneous space. There is no obvious intraperitoneal fluid or abscess. There are a few dilated loops of small bowel without overt obstruction, possible partial ileus. Because of these findings, Dr. Rivers was consulted and I had the opportunity to discuss this patient with Dr. Valdez and with Dr. Rivers. We agreed that a CT scan of the abdomen with oral contrast would be helpful to evaluate whether or not there is any obvious extravasation of contrast from the digestive system to evaluate for the possibility of intestinal injury or appendiceal leak from the appendectomy site. I also had the opportunity to discuss the care with Dr. Americo Guerrier. I am grateful for all of them involved, their willingness to assist and cover as I was not telecommunications engineer, but certainly am concerned and wanted to see how she was doing as she is a recent postoperative case as a postoperative patient under my care and I am grateful for Dr. Rivers's attention to her and willingness to cover her for any surgical matters in my absence. The followup imaging showed stability of the area as noted above. It did not show any obvious extravasation of dye beyond the intestinal tract. The pathology from her recent surgery shows no residual borderline tumor in the right ovary. The appendix appears normal other than some fibrous obliteration of the lumen and the omentum has some reactive cells, but no overt evidence to suggest borderline tumor and all of the aforementioned results are shared with Mary Cosme and her significant other. PAST MEDICAL HISTORY: Recent diagnosis of borderline ovarian tumor as noted above. She has a past medical history of migraine headaches, otherwise is in good health. ALLERGIES: NECTANINE AND PENICILLIN. SOCIAL HISTORY: She is and has a very supportive . Denies alcohol or tobacco use. FAMILY HISTORY: Unremarkable. REVIEW OF SYSTEMS: As per history of present illness. MEDICATIONS: Include: 1. Percocet. 2. Topiragen. 3. Kelnor. 4. Tere. PHYSICAL EXAMINATION: GENERAL: She is seen in the emergency room with her . She is afebrile. She is resting comfortably, no acute distress, asks and answers questions appropriately. Alert and oriented x3. VITAL SIGNS: Afebrile, pulse 68-96, respirations 16-20, blood pressure 92-132 over 49-99, O2 saturations greater than or equal to 99% on room air. ABDOMEN: Soft. The laparoscopic incisions appear to be healing well. There is no obvious ecchymosis, seroma, or hematoma. No separation of the skin. No obvious hernia. She had tenderness on deep palpation most motion noted in the right upper quadrant, but without palpable mass or abdominal wall deformity. She tolerates the exam without rebound, but she states that it is the same spot that has been uncomfortable since surgery and remains uncomfortable. CORRESPONDENCE REVIEW CLERK: Deferred given recent exams. She has had no bleeding. Time was spent in discussing with her and reviewing the findings in her case to date. I summarized all of the aforementioned findings, concerns and test results thus far. Additionally, there is some red cells and leukocyte esterase in the urine specimen and culture is forthcoming, so the possibility of a urinary tract infection is included in our concerns. I explained that there is no overt evidence of intestinal obstruction. There is no intraperitoneal bleeding or fluid. There is no obvious extravasation of dye to suggest discontinuity within the digestive system. It is thought that the intraperitoneal and subcutaneous air is still consistent with findings for postoperative day #5. Nevertheless, because she is feeling poorly and with these findings, we all agreed it is reasonable to have her admitted for observation and supportive care to ensure that she improves in how she is feeling and does not have any significant or worrisome new findings. Discussion ensued. Questions were answered. She expressed good understanding. Again, I explained that the results thus far and that the aforementioned physicians will be assisting in her care in my absence from call. However, any tentative holiday travel plans have been put on hold at least in the short-term and I am able to be reached on my cell phone at any time should there be any new concerns. More questions were asked and answered and hope she gets to feeling better soon. ASSESSMENT: 1. Postoperative day #5 2. Abdominal pain, elevated white count, intraperitoneal and subcutaneous air. 3. Objective findings as summarized above. No overt evidence of obstruction, intraperitoneal bleed, intraperitoneal fluid or extravasation of contrast to suggest lack of continuity to the bowel. 4. Possible urinary tract infection. 5. Extensive discussion. PLAN: Agree with hospital admission, supportive care, observation to ensure that there is not an underlying problem that progresses given her recent postoperative status. Bhumi Jauregui MD KLM/gino , 09:35 PM , 09:54 PM
[2018-04-21] MEDS: HYDROmorphone PF Inj 0.5 MG/0.5 ML Syringe IV.PUSH PRN ×2 (03:52→13:58)
[2018-04-21 07:42] LABS: Alanine Aminotransferase 24 U/L (10-53); Albumin 2.9 g/dL (3.4-5.0); Alkaline Phosphatase 69 U/L (45-117); Anion Gap 9 meq/L (5-15); Aspartate Aminotransferase 13 U/L (15-37); Blood Urea Nitrogen 14 mg/dL (7-18); Calcium 8.1 mg/dL (8.5-10.1); Carbon Dioxide 19.8 meq/L (21.0-32.0); Chloride 110 meq/L (98-107); Glomerular Filtration Rate 78 mL/min (>89); Glucose,Random 70 mg/dL (74-106); Potassium 4.1 meq/L (3.5-5.1); Sodium 139 meq/L (136-145); Total Protein 6.5 g/dL (6.4-8.2)
[2018-04-21] MEDS: Sod Chloride 0.9% Inj 1,000 ML IV.CONT SCH ×2 (07:45→10:12)
[2018-04-21] MEDS: Senna/Docusate Sodium 8.6/50 MG Tablet PO SCH (08:31)
[2018-04-21 09:36] VITALS: O2SAT 100
[2018-04-21 12:30] VITALS: BP 112/57; PULSE 66; RESP 17; TEMP 98.1
--- NOTE | 2018-04-21 13:46 | P.PNVS ---
Subjective Subjective/Hospital Course: 04/21/2018 Patient is doing well abdomen is soft active bowel sounds chicken tender in left lower quadrant but there is no rebound or guarding and this is simply postoperative tenderness expected from this type of surgery Patient had several bowel movements No nausea or vomiting In face of benign abdomen and no abnormal postoperative findings, patient can be safely discharged today with follow-up with Dr. Jauregui after 25 April. Objective Vital Signs / I&O: Vital Signs 04/20/18 16:00 04/20/18 17:54 04/20/18 20:00 Temperature Pulse Rate 76 69 Respiratory Rate 20 16 Blood Pressure 132/83 Pulse Oximetry 98 04/20/18 21:44 04/21/18 00:00 04/21/18 04:00 Temperature 98.7 F 97.9 F 98.2 F Pulse Rate 70 54 L 58 L Respiratory Rate 16 16 16 Blood Pressure 124/65 111/52 L 106/54 L Pulse Oximetry 99 100 99 04/21/18 08:00 04/21/18 12:00 Temperature 97.9 F 98.1 F Pulse Rate 62 66 Respiratory Rate 18 17 Blood Pressure 109/57 L 112/57 L Pulse Oximetry 100 100 Intake & Output 04/20/18 04/21/18 04/21/18 18:59 06:59 18:59 Intake Total 200 / 200 150 / 150 1000 / 1000 Balance 200 / 200 150 / 150 1000 / 1000 Weight 68.039 kg 68 kg Intake: IV 200 / 200 1000 / 1000 NS Inj 1,000 ML @ 84 mls/hr IV. 1000 / 1000 CONT .[id number] [facility] Rx#:[id number] Rocephin Inj 1,000 MG In NS Inj 100 / 100 100 ML @ 200 mls/hr IV.SIG ONCE ONE Rx#:[id number] Flagyl 500 MG Inj 100 ML @ 100 100 / 100 mls/hr IV.SIG ONCE ONE Rx#: [id number] Tube Feeding 150 / 150 Other: # Voids 3 Weight On Admission 68.039 kg Laboratory Results - last 24 hr 04/21/18 07:07 Sodium 139 Potassium 4.1 Chloride 110 H Carbon Dioxide 19.8 L Anion Gap 9 BUN 14 Creatinine 0.87 Estimated GFR 78 L Random Glucose 70 L Calcium 8.1 L D Total Bilirubin 0.4 AST 13 L ALT 24 Alkaline Phosphatase 69 Total Protein 6.5 D Albumin 2.9 L Impressions Chest X-Ray 04/20/18 00:00 CONCLUSION: 1. No acute cardiopulmonary disease. Abdomen/Pelvis CT 04/20/18 11:41 CONCLUSION: 1. Evidence of a moderate amount of free intraperitoneal air. Differential diagnosis includes residual free intraperitoneal air related to recent intraoperative procedure versus perforated viscus. Clinical correlation is recommended to rule out acute abdomen. There are several loops of minimally dilated small bowel suggesting postoperative ileus. 2. Subcutaneous air is noted throughout the abdominal and pelvic wall bilaterally consistent with recent intraoperative surgery. 3. Distended urinary bladder. 4. Tiny stable low-density lesion within the right lobe of liver measuring 7 mm which remains too small for accurate density measurement. Abdomen/Pelvis CT 04/20/18 17:14 CONCLUSION: 1. Persistent free intraperitoneal air which is stable in volume compared to the earlier scan. Differential diagnosis remains the same including air related to recent intraoperative procedure versus perforated viscus if clinical scenario suggests this diagnosis. 2. There is no evidence of extravasation of oral contrast. 3. Stable subcutaneous air within the abdominal and pelvic wall.
--- NOTE | 2018-04-21 14:53 | P.DS ---
DS: Providers Date of admission: 04/20/18 18:17 Primary care physician: Abram Cheng MD Brief History from admission: This a 28-year-old female patient with past medical history which includes allergic rhinitis, migraines, PCOS. Patient is status post robotic-assisted laparoscopic right salpingo-oophorectomy, partial omentectomy, appendectomy, intraperitoneal cytology on 04/15/[address] Jauregui. Patient presents to the ER for evaluation of postoperative abdominal pain. She reports that she has had postoperative abdominal pain since the surgery but it has been worsening. She called the nursing line for his office and was referred to the emergency room. Pain is primarily in the right mid abdomen region, aching, constant, partially relieved with use of Percocet and ibuprofen. She reports some nausea and dizziness occasionally as well. She reports that she has been having bowel movements. She has had no vomiting, no fevers, no dysuria or flank pain. She has no other complaints at this time. PMH: allergic rhinitis, migraines, PCOS PSxH: robotic-assisted laparoscopic right salpingo-oophorectomy, partial omentectomy, appendectomy, intraperitoneal cytology on 04/15/[address] Jauregui 12/2017 laparoscopy with right ovarian cystectomy Social history: occasional ETOH use, denies tobacco use, denies illicit drug use FMH: Father has HTN Mother has OA DS: Summary This a 28-year-old female patient with past medical history which includes allergic rhinitis, migraines, PCOS. Patient is status post robotic-assisted laparoscopic right salpingo-oophorectomy, partial omentectomy, appendectomy, intraperitoneal cytology on 04/15/[address] Jauregui. Patient presents to the ER for evaluation of postoperative abdominal pain. She reports that she has had postoperative abdominal pain since the surgery but it has been worsening. She called the nursing line for his office and was referred to the emergency room. Pain is primarily in the right mid abdomen region, aching, constant, partially relieved with use of Percocet and ibuprofen. She reports some nausea and dizziness occasionally as well. She reports that she has been having bowel movements. She has had no vomiting, no fevers, no dysuria or flank pain. She has no other complaints at this time. Right ovarian mucinous borderline ovarian tumor -Patient is status post robotic-assisted laparoscopic right salpingo- oophorectomy, partial omentectomy, appendectomy, intraperitoneal cytology on with Dr. Jauregui. -Patient presents to the ER for evaluation of postoperative abdominal pain. -Abdomen/Pelvis CT 04/20/18 1. Evidence of a moderate amount of free intraperitoneal air. Differential diagnosis includes residual free intraperitoneal air related to recent intraoperative procedure versus perforated viscus. Clinical correlation is recommended to rule out acute abdomen. There are several loops of minimally dilated small bowel suggesting postoperative ileus. 2. Subcutaneous air is noted throughout the abdominal and pelvic wall bilaterally consistent with recent intraoperative surgery. 3. Distended urinary bladder. 4. Tiny stable low-density lesion within the right lobe of liver measuring 7 mm which remains too small for accurate density measurement. - 04/[address] Jauregui - Consult general surgery - Patient seen by Dr. Jauregui and general surgery Dr. Rivers - Abdomen/Pelvis CT 04/20/18 1. Persistent free intraperitoneal air which is stable in volume compared to the earlier scan. Differential diagnosis remains the same including air related to recent intraoperative procedure versus perforated viscus if clinical scenario suggests this diagnosis. 2. There is no evidence of extravasation of oral contrast. 3. Stable subcutaneous air within the abdominal and pelvic wall. - 04/21/18 patient cleared for DC per general surgery Possible UTI WBC 13.8 Urinalysis reviewed small amount of occult blood large amount of leukocyte esterase rare bacteria and rare mucus present Urine culture is pending emergency department gave Rocephin 1 gram IV Continue Rocephin 1 gram IV daily Migraines Continue patient's home Topiramate 100mg 1 tablet BID PCOS Continue patient's home metformin 1000mg PO BID DVT prophylaxis with SCDs Attending Attestation: The exam, history, and the medical decision-making described in the above note were completed with the assistance of the mid-level provider. I reviewed and agree with the findings presented. I attest that I had a [id number] encounter with the patient on the same day, and personally performed and documented my assessment and findings in the medical record. Patient examined. Assessment and plan formulated with Delia Gillette PA-C. I agree with the above. Case d/w Surgeon, Dr. Rivers. Pt surgically cleared for discharge. On my physical exam, pt with mild abdominal pain on palpation c/w recent surgery. Will advance diet and discharge pt to home if she is able to tolderate diet. Time Spent with Patient Total time spent providing and/or coordinating discharge services: Quality: VTE Deep Vein Thrombosis/Pulmonary Embolism Present on Admission: No Exam Narrative Exam Narrative: GENERAL: This is a well-nourished, well-developed patient, in no apparent distress. CARDIOVASCULAR: Regular rate and rhythm without murmurs, gallops, or rubs. RESPIRATORY: Clear to auscultation. Breath sounds equal bilaterally. No wheezes , rales, or rhonchi. GASTROINTESTINAL: Abdomen soft, generalized tender worse on the right, nondistended. Normal active bowel sounds MUSCULOSKELETAL: Extremities without clubbing, cyanosis, or edema. NEURO: Alert & Oriented x4 to person, place, time, situation. Moves all ext x4 Results Labs on day of discharge: Labs from last 24 hours 04/21/18 07:07 Sodium 139 Potassium 4.1 Chloride 110 H Carbon Dioxide 19.8 L Anion Gap 9 BUN 14 Creatinine 0.87 Estimated GFR 78 L Random Glucose 70 L Calcium 8.1 L D Total Bilirubin 0.4 AST 13 L ALT 24 Alkaline Phosphatase 69 Total Protein 6.5 D Albumin 2.9 L Preliminary micro results at discharge 04/20/18 12:00 Urine Culture - Preliminary Clean Catch Urine Immature growth - reincubate Impressions ITS Impressions Chest X-Ray 04/20/18 00:00 CONCLUSION: 1. No acute cardiopulmonary disease. Abdomen/Pelvis CT 04/20/18 17:14 CONCLUSION: 1. Persistent free intraperitoneal air which is stable in volume compared to the earlier scan. Differential diagnosis remains the same including air related to recent intraoperative procedure versus perforated viscus if clinical scenario suggests this diagnosis. 2. There is no evidence of extravasation of oral contrast. 3. Stable subcutaneous air within the abdominal and pelvic wall. Discharge Plan Discharge Disposition Patient Disposition: Discharge Home Discharge Condition Condition: Stable Discharge Order Discharge Orders: Discharge Order (Routine); Ordered 04/21/18 Ordered By: Delia Gillette Discharge Details Anticipated Discharge Date: 04/21/18 Discharge Comment: Please DC home if patient able to tolerate PO Physicians Team Primary Care Provider: Abram Cheng Attending Provider: Americo Guerrier Rxs /Orders / Referrals /Forms Prescriptions: New docusate sodium [Colace] 100 mg capsule 100 mg PO BID 10 Days Qty: 20 RF: 0 sulfamethoxazole-trimethoprim [Bactrim DS] 800-160 mg tablet 1 tab PO BID 4 Days Qty: 8 RF: 0 Continue fluticasone [Allergy Relief (fluticasone)] 50 mcg/actuation [place],Suspension 1 spray INTRANASAL DAILY RF: 0 oxycodone-acetaminophen 5-325 mg Tablet 1 tab PO Q4H PRN (Reason: Pain ) Qty: 30 RF: 0 ethynodiol diac-eth estradiol [Kelnor 1-50] 1-50 mg-mcg Tablet 1 tab PO HS RF: 0 topiramate 100 mg Tablet 100 mg PO BID RF: 0 fexofenadine-pseudoephedrine [Tere-D 24 Hour] 180-240 mg Tablet Extended Release 24 Hr 1 tab PO HS RF: 0 metformin 1,000 mg Tablet,Er Marissa.Retention 24 Hr 2,000 mg PO HS RF: 0 biotin 5 mg Tablet 1 tab PO HS RF: 0 Referrals: Abram Cheng MD [Primary Care Provider] - See Instructions (Follow up in 1 weel) Bhumi Jauregui MD [Physician] - See Instructions (Follow up in 1 week) Discharge Instructions Patient Printed Instructions: Ovarian Cyst (GEN), Urinary Tract Infection in Women (GEN), Acute Abdominal Pain (GEN) Status ED Status: Left Department Discharge Information Discharge Date/Time: 04/21/18 20:27
== END 2018-04-21 20:27 | disposition home or self-care (01) ==
LOC: NEPE 11:13 → NEDA 18:17 → INTOOBSV 18:17 → N07 21:08
PROVIDERS: ADMIT Hospitalist; ATTEND Hospitalist
CPT/HCPCS: 71010; 71045; 74176; 74177; 80053; 81001; 83690; 83735; 85025; 87086; 90765; 90767; 90775; 96365; 96366; 96367; 96375; 99285; G0378; J0696; J1170; J2270; J2405; J7030; Q9963; Q9967